=== PATIENT | male | born 1960 | race Caucasian/White ===

== ENCOUNTER 2018-11-28 19:02 | Emergency (ER) | payer SELFPAY ==
--- NOTE | 2018-11-28 20:37 | RADIOLOGY REPORT (SQ) ---
EXAM DESCRIPTION: XR ELBOW 1-2 VIEWS COMPLETED DATE/TME: 11/28/2018 19:37 CLINICAL HISTORY: 58 years, Male, deformity, suspect dislocation COMPARISON: None. NUMBER OF VIEWS: TECHNIQUE: LIMITATIONS: None. FINDINGS: There is a large amount of soft tissue swelling, particularly medially. No acute fracture or dislocation. There is possible old fracture involving the medial epicondyle of the distal humerus. Alternatively, this could represent an unfused ossification center. There is a large olecranon spur. There is no evidence of elbow joint effusion. IMPRESSION: Large amount of soft tissue swelling, particularly medially. Other findings as described. copyright 2010 [employer]- All Rights Reserved
[2018-11-28 21:38] VITALS: BP 154/94
--- NOTE | 2018-11-29 03:44 | ER Document Report ---
Entered by KARLEE DIAZ SCRIBE 11/28/[id number] Acting as scribe for:MARSHALL YIP DO ED Extremity Problem, Upper - General Chief Complaint: Arm Injury Stated Complaint: ELBOW INJURY Time Seen by Provider: 11/28/18 19:36 Primary Care Provider: KIAN BUSH DO [ACTIVE STAFF] - 12/01/18 Mode of Arrival: Ambulatory Information source: Patient Notes: 58-year-old male who presents to the emergency department today with complaints of left elbow pain. Patient states he was arm wrestling with a much younger individual when he heard a pop with severe pain in his left elbow. Patient states he ate lunch at 1500 and drank his last of 3 beers at approximately 1730 this evening. TRAVEL OUTSIDE OF THE [place] IN LAST 30 DAYS: No - Related Data Allergies/Adverse Reactions: No Known Allergies Allergy (Unverified 07/19/11 19:52) Past Medical History - General Information source: Patient - Social History Smoking Status: Current Some Day Smoker Cigarette use (# per day): Yes Frequency of alcohol use: Social Drug Abuse: Marijuana Family History: Reviewed & Not Pertinent Patient has suicidal ideation: No Patient has homicidal ideation: No - Past Medical History Cardiac Medical History: Reports: Hx Hypertension Surgical Hx: Negative Review of Systems - Review of Systems Constitutional: No symptoms reported EENT: No symptoms reported Cardiovascular: No symptoms reported Respiratory: No symptoms reported Gastrointestinal: No symptoms reported Genitourinary: No symptoms reported Male Genitourinary: No symptoms reported Musculoskeletal: See HPI, Other - left elbow pain Skin: No symptoms reported Hematologic/Lymphatic: No symptoms reported Neurological/Psychological: No symptoms reported -: Yes All other systems reviewed and negative Physical Exam - Vital signs Vitals: Temp Pulse Resp BP Pulse Ox 98.2 F 93 14 148/93 H 97 11/28/18 19:22 11/28/18 19:22 11/28/18 19:22 11/28/18 19:22 11/28/18 19:22 - Notes Notes: PHYSICAL EXAM GENERAL: Alert, interacts well. Appears slightly uncomfortable. HEAD: Normocephalic, atraumatic. EYES: Pupils equal, round, and reactive to light. Extraocular movements intact. ENT: Oral mucosa moist, tongue midline. Mallampati of 1. NECK: Full range of motion. Supple. Trachea midline. LUNGS: No respiratory distress. HEART: Regular rate and rhythm. EXTREMITIES: Left elbow deformity, medial swelling, possible anterior elbow dislocation. Radial and ulnar pulses are 2+ distal to the injury. Good hand squeeze. NEUROLOGICAL: Alert and oriented x3. Normal speech. PSYCH: Normal affect, normal mood. SKIN: Warm and dry. No rashes or lesions noted. Course - Re-evaluation Re-evalutation: 11/28/18 21:12 Examination is concerning for possible dislocation however the x-ray shows a large amount of soft tissue swelling particularly medially but there is no evidence of fracture or dislocation, there is a possible old fracture involving the medial epicondyle of the distal humeral humerus. No evidence of elbow joint effusion. Doubt occult fracture at this time. After x-ray results were obtained I did go back and into more depth examination, he is quite tender around the medial epicondyles however not on top of the medial epicondyles itself, suspect a rupture of either the biceps or triceps tendon. Patient has some weakness with flexion of the left arm, significant pain with supination of the left arm. Patient will be placed in a sling, instructed on ice and given limited number of [place] for pain control. Instructed to call orthopedic surgery office Saturday morning. I did briefly discuss the patient with Dr. Kian Bush over the phone who agrees with outpatient follow-up. Dr. Bush was not asked to come in and evaluate the patient at this time. - Vital Signs Vital signs: Temp Pulse Resp BP Pulse Ox 98.2 F 93 17 154/94 H 97 11/28/18 19:22 11/28/18 19:22 11/28/18 21:01 11/28/18 21:01 11/28/18 21:01 Procedures - Immobilization Left Elbow Pre-Proc Neuro Vasc Exam: Normal Immobilizer type: Sling Performed by: RN Post-Proc Neuro Vasc Exam: Normal, Unchanged from pre-exam Alignment checked and good: Yes Discharge - Discharge Clinical Impression: Injury of left elbow Qualifiers: Encounter type: initial encounter Qualified Code(s): S59.902A - Unspecified injury of left elbow, initial encounter Condition: Stable Disposition: HOME, SELF-CARE Additional Instructions: I suspect you have an injury to either your biceps or triceps tendons. It is very important that you keep your elbow in a sling and you ice it for 15 minutes every hours. Wrap the ice in a towel, do not place the ice directly against her skin. You may use ibuprofen 800 mg every 8 hours as needed for pain. You may also use the [place] 1 tablet every 4-6 hours as needed for pain. You should call Dr. Kian Bush's office first thing Saturday to arrange a follow-up appointment. Do not go directly to the office. Prescriptions: Hydrocodone/Acetaminophen [[place] 5-325 mg Tablet] 1 tab PO Q4HP PRN #12 tablet PRN Reason: Referrals: KIAN BUSH DO [ACTIVE STAFF] - 12/01/18 I personally performed the services described in the documentation, reviewed and edited the documentation which was dictated to the scribe in my presence, and it accurately records my words and actions.
== END 2018-11-28 21:38 | disposition home or self-care (01) ==
LOC: ER 19:02
DX: S59.902A Unspecified injury of left elbow, initial encounter (principal); M25.522 Pain in left elbow; X58.XXXA Exposure to other specified factors, initial encounter; Y93.83 Activity, rough housing and horseplay; F17.210 Nicotine dependence, cigarettes, uncomplicated
CPT/HCPCS: 99283